=== PATIENT | female | born 1970 | race African-American/Black ===

== ENCOUNTER 2022-03-23 07:49 | Emergency (ER) | payer OTHER ==
[~2022-03-23] VITALS: Ht 177.8 cm; Wt 117.9 kg
== END 2022-03-23 15:21 | disposition home or self-care (01) ==
LOC: ER 07:49
DX: N23 Unspecified renal colic (principal); N20.0 Calculus of kidney; K57.90 Diverticulosis of intestine, part unspecified, without perforation or abscess without bleeding; K76.0 Fatty (change of) liver, not elsewhere classified